=== PATIENT | female | born 1970 | race American Indian/Alaskan Native ===

== ENCOUNTER 2016-12-31 15:17 | Emergency (ER) | payer OTHER ==
[2016-12-31 15:59] LABS: Basophils % (Auto) 0.7 % (0.0-1.8); Hematocrit 35.2 % (30.3-42.9); Hemoglobin 11.3 gm/dl (10.1-14.3); Mean Corpuscular HGB Conc 32 % (30-34); Mean Corpuscular Hemoglobin 26 pg (28-32); Mean Corpuscular Volume 82 fl (79-97); Platelet Count 229 K/mm3 (140-440); Red Blood Count 4.31 M/mm3 (3.65-5.03); Red Cell Distribution Width 13.6 % (13.2-15.2); White Blood Count 5.9 K/mm3 (4.5-11.0)
[2016-12-31 16:12] LABS: Anion Gap 15 mmol/L; BUN/Creatinine Ratio 17.14; Blood Urea Nitrogen 12 mg/dL (7-17); Calcium 8.8 mg/dL (8.4-10.2); Carbon Dioxide 24 mmol/L (22-30); Chloride 100.5 mmol/L (98-107); Glucose 88 mg/dL (65-100); Potassium 3.9 mmol/L (3.6-5.0); Sodium 136 mmol/L (137-145)
[2016-12-31 17:12] LABS: Bilirubin,Urine NEG (Negative); Blood,Urine NEG (Negative); Ketones,Urine NEG (Negative); Leukocyte Esterase,Urine NEG (Negative); Mucus,Urine FEW /HPF; Nitrite,Urine NEG (Negative); Protein,Urine <15 mg/dL mg/dL (Negative); Urobilinogen,Urine < 2.0 mg/dL (<2.0)
--- NOTE | 2016-12-31 18:06 | Emergency Department Report ---
Chief Complaint: Back Pain/Injury Stated Complaint: BACK PAIN Time Seen by Provider: 12/31/16 18:01 - HPI History of Present Illness: Patient presents with bilateral lower back pain that she states radiates to her lower pelvic region that started today. She denies urinary symptoms, but admits to constipation due to taking Copaxone she also admits to having hemorrhoids. She states her last bowel movement was today but also small amount was hard. She denies blood in her stool and her urine, denies fever, chills admits to mild nausea but no vomiting. She does have a history of MS and states that she has had this type of pain in the past due to her MS. LMP was 12/10/16 she has recently visited Dr. Espinoza at the [facility] but states she is searching for a new doctor here in - ROS Review of Systems: All other systems unremarkable except documentation in HPI - Exam Vital Signs: Vital Signs 12/31/16 15:21 Temperature 98.5 F Pulse Rate 81 Respiratory 17 Rate Blood Pressure 158/96 O2 Sat by Pulse 100 Oximetry Physical Exam: Gen: Female well-developed and nourished, no apparent distress noted, ambulatory with a cane. Cardiovascular: Heart sounds present S1-S2, no murmur, gallop, edema or ectopy noted, 2+ pulses upper and lower extremities Respiratory: Chest symmetry with respirations, lungs clear to auscultate upper and lower lobes, respirations even and unlabored, no rales, rhonchi, crackles noted. MS: Bilateral lower back pain with light palpation, no limited range of motion. Abdomen: bowel sounds present, soft, nondistended, nontender, no rigidity, guarding or rebound tenderness Psych: AxOx3, answers questions appropriately, mood full range, affect normal, normal speech and tone. MSE screening note: Focused history and physical exam performed. Due to findings the following was ordered: seen by provider, laboratory and ordered, and to go to main ED to be seen by physician ED Medical Decision Making - Lab Data Result diagrams: 12/31/16 15:41 12/31/16 15:41 - Medical Decision Making seen by provider, laboratory studies ordered, and to go to main ED to be seen by physician ED Disposition for MSE Condition: Stable Referrals: PRIMARY CARE, [Primary Care Provider] - 3-5 Days
[2016-12-31] MEDS ORDERED: NACL 0.9% 1000 ML 1,000 ML IV ONE (20:34)
[2016-12-31] MEDS ORDERED: ZOFRAN IV ONE (20:34)
[2016-12-31] MEDS ORDERED: BENTYL IM ONE (20:34)
[2016-12-31] MEDS ORDERED: MORPHINE IV ONE (20:34)
--- NOTE | 2016-12-31 20:35 | Emergency Department Report ---
ED General Adult HPI - General Chief complaint: Back Pain/Injury Stated complaint: BACK PAIN Time Seen by Provider: 12/31/16 18:01 Source: patient, RN notes reviewed Mode of arrival: Ambulatory Limitations: Physical Limitation - History of Present Illness Initial comments: This is a 46-year-old female. She is previously unknown to me. Does not have a primary care doctor. Past medical history includes multiple sclerosis, hypertension, asthma. Last menstrual period is December 10. Also has a history of "enlarged uterus." Patient has surgical history for 2 C-sections. Patient presents to the ER complaining of bilateral lower back pain, that radiates into the bilateral lower quadrants. Pain is present for a few days. It is achy and sharp. It increases with palpation and range of motion. Decreases with rest. Patient also reports that she feels constipated, and also reports that her hemorrhoids are somewhat enlarged. There is no bright red blood per rectum. Positive nausea, no vomiting. Patient did admit to chronic right hip pain and moves down the right leg, which is not new, worsening or different. no Irritative or obstructive urinary symptoms. The patient has one sexual partner, does not use condoms, there is a history of chronic mild dyspareunia, no vaginal discharge which is new different or worse. -: Gradual Location: back Radiation: abdomen Quality: aching Consistency: intermittent Improves with: rest Worsens with: movement Associated Symptoms: nausea/vomiting. denies: confusion, chest pain, cough, diaphoresis, fever/chills - Related Data Home Medications Medication Instructions Recorded Confirmed Last Taken Glatiramer Acetate [Copaxone] 40 mg SQ 3XW 12/16/15 12/16/15 12/14/15 Valsartan/Hydrochlorothiazide 1 tab PO QDAY 12/16/15 12/16/15 12/16/15 [Diovan Hct 160-12.5 mg] Previous Rx's Medication Instructions Recorded Last Taken Type Ibuprofen [Motrin 800 MG tab] 800 mg PO Q8HR PRN #30 tablet 12/16/15 Unknown Rx traMADol [Ultram 50 MG tab] 50 mg PO Q6HR PRN #20 tablet 12/16/15 Unknown Rx Ketorolac [Toradol] 10 mg PO Q6H PRN #20 tablet 01/01/17 Unknown Rx Ondansetron [Zofran Odt] 4 mg PO QID PRN #20 tab.rapdis 01/01/17 Unknown Rx Allergies Allergy/AdvReac Type Severity Reaction Status Date / Time No Known Allergies Allergy Verified 12/31/16 15:28 ED Review of Systems ROS: Stated complaint: BACK PAIN Other details as noted in HPI Constitutional: denies: fever Eyes: denies: eye discharge ENT: denies: epistaxis Respiratory: denies: cough Cardiovascular: denies: chest pain Gastrointestinal: abdominal pain Genitourinary: denies: urgency, dysuria Musculoskeletal: back pain Skin: denies: lesions Neurological: paresthesias Psychiatric: denies: anxiety ED Past Medical Hx - Past Medical History Hx Hypertension: Yes Additional medical history: MS. ENLARGED UTERUS - Surgical History Additional Surgical History: x 2 - Social History Smoking Status: Never Smoker Substance Use Type: Alcohol, Prescribed - Medications Home Medications: Home Medications Medication Instructions Recorded Confirmed Last Taken Type Glatiramer Acetate [Copaxone] 40 mg SQ 3XW 12/16/15 12/16/15 12/14/15 History Ibuprofen [Motrin 800 MG tab] 800 mg PO Q8HR PRN #30 tablet 12/16/15 Unknown Rx Valsartan/Hydrochlorothiazide 1 tab PO QDAY 12/16/15 12/16/15 12/16/15 History [Diovan Hct 160-12.5 mg] traMADol [Ultram 50 MG tab] 50 mg PO Q6HR PRN #20 tablet 12/16/15 Unknown Rx Ketorolac [Toradol] 10 mg PO Q6H PRN #20 tablet 01/01/17 Unknown Rx Ondansetron [Zofran Odt] 4 mg PO QID PRN #20 tab.rapdis 01/01/17 Unknown Rx ED Physical Exam - General Limitations: No Limitations, Other (she walks with a cane, walks with a very minimal limp.) General appearance: alert, in no apparent distress - Head Head exam: Present: atraumatic, normocephalic - Eye Eye exam: Present: normal appearance, EOMI. Absent: nystagmus - ENT ENT exam: Present: normal exam, normal orophraynx, mucous membranes moist, normal external ear exam - Neck Neck exam: Present: normal inspection, full ROM. Absent: tenderness, meningismus - Respiratory Respiratory exam: Present: normal lung sounds bilaterally. Absent: respiratory distress, wheezes, rales, rhonchi, stridor, chest wall tenderness - Cardiovascular Cardiovascular Exam: Present: regular rate, normal rhythm, normal heart sounds. Absent: bradycardia, tachycardia, irregular rhythm, systolic murmur, diastolic murmur, rubs, gallop - GI/Abdominal GI/Abdominal exam: Present: soft, tenderness (mild suprapubic and bilateral lower quadrant tenderness. There is no rebound, guarding or peritoneal signs.) , normal bowel sounds. Absent: distended, guarding, rebound, rigid, pulsatile mass - Rectal Rectal exam: Present: normal inspection, other (no bleeding, during examination , I am escorted by nurse Eugenia Marc) - External exam: Present: normal external exam Speculum exam: Present: normal speculum exam, vaginal discharge Bi-manual exam: Present: normal bi-manual exam, other (during examination, I am escorted by nurse Eugenia White). Absent: cervical motion tendernes, adnexal tenderness, adnexal mass - Extremities Exam Extremities exam: Present: normal inspection, full ROM, normal capillary refill. Absent: tenderness, pedal edema, joint swelling, calf tenderness - Back Exam Back exam: Present: normal inspection, full ROM, paraspinal tenderness. Absent : tenderness, CVA tenderness (R) - Neurological Exam Neurological exam: Present: alert, oriented X3, other (Extraocular movements intact. Tongue midline. No facial droop. Facial sensation intact to light touch in the V1, V2, V3 distribution bilaterally. 5 and 5 strength in 4 extremities.. Sensation is intact to light touch in 4 extremities.). Absent: motor sensory deficit - Psychiatric Psychiatric exam: Present: normal affect, normal mood - Skin Skin exam: Present: warm, dry, intact, normal color. Absent: rash ED Course Vital Signs 12/31/16 12/31/16 01/01/17 15:21 21:28 00:16 Temperature 98.5 F 98 F Pulse Rate 81 70 Respiratory 17 18 18 Rate Blood Pressure 158/96 Blood Pressure 120/60 [Left] O2 Sat by Pulse 100 Oximetry - Reevaluation(s) Reevaluation #1: 12/31/16 21:11 Differential diagnoses: Colitis, diverticulitis, constipation, appendicitis, endometriosis Assessment and plan: 46-year-old female with back pain and lower abdominal pain. She is afebrile with reassuring vital signs, with exception of elevated blood pressure. Patient indicates to me that this pain is not consistent with episodes of multiple sclerosis. Laboratory studies are unremarkable, clinically doubt pancreatitis or biliary disease. Her gynecologic examination is benign. She will be treated symptomatically. A CT scan of the abdomen and pelvis is ordered. We will reassess. Reevaluation #2: 01/01/17 00:33 CT scan demonstrates no acute intra-abdominal pathology that would require emergent surgical intervention. Ambulates with assistance and cane. Fibroid uterus is suggested, which is known and chronic. Tenderness improved. No active vomiting. Patient will be discharged with pain medication, nausea medication, instructions to follow-up with gynecology, primary care. She is also noted to have a skin tag in the rectum, this can be followed up by either primary care or general surgery. She wants to follow up with a neurologist as well, she will be given local names , phone numbers and addresses. At this point in time, I see no immediate emergent condition that would require hospital admission. Patient will need to follow up as an outpatient. Given known history of fibroids, benign gynecologic examination, I don't believe patient requires emergent ultrasound at this time. 01/01/17 00:35 ED Medical Decision Making - Lab Data Result diagrams: 12/31/16 15:41 12/31/16 15:41 - Radiology Data Radiology results: report reviewed, image reviewed CT scan with IV contrast: 6 mm stone noted in the left mid renal cortical medullary region. The appendix is normal. The GI tract is normal. The uterus is enlarged. Fibroid formation is suggested. Follicular cysts on each ovary are suspected. Critical care attestation.: If time is entered above; I have spent that time in minutes in the direct care of this critically ill patient, excluding procedure time. ED Disposition Clinical Impression: Abdominal pain Disposition: DISCHARGED TO HOME OR SELFCARE Is pt being admited?: No Does the pt Need Aspirin: No Condition: Stable Instructions: Uterine Fibroids (ED) Additional Instructions: Rest and avoid heavy lifting. Avoid strenuous physical activity. Follow-up with the primary care doctor within the next week. Dr. Tineo is a local primary care doctor. CT scan demonstrated large fibroid uterus. Follow-up with a yard hand within the next month. Dr. Potts is a local yard hand. For the rectal skin tag, you may follow-up with a general surgeon. Dr. Ruiz is a local general surgeon. Follow up with him or any general surgeon at your leisure. For your convenience, Drs. Dent and Franklin are local neurology specialist. I recommended that you follow up with neurology specialist within next month. Chronic multiple sclerosis. Cultures were sent today, results will be available in the next 3-5 days. Have a primary care doctor contact the medical records department to obtain culture results. Return to the ER right away with new pain, worsened pain, migration of pain, fevers or chills, intractable nausea or vomiting, inability to tolerate liquid feeds. Prescriptions: Ketorolac [Toradol] 10 mg PO Q6H PRN #20 tablet PRN Reason: Pain Ondansetron [Zofran Odt] 4 mg PO QID PRN #20 tab.rapdis PRN Reason: Nausea Referrals: PRIMARY CAREMD [Primary Care Provider] - 3-5 Days SLAVA TINEO MD [Staff Physician] - 3-5 Days RAVEN POTTS MD [Staff Physician] - 3-5 Days ALANIS RUIZ MD [Staff Physician] - 3-5 Days MARTHA DENT MD [Staff Physician] - 3-5 Days HOLLY PINEDA MD [Staff Physician] - 3-5 Days
[2016-12-31] MEDS ORDERED: TORADOL IV ONE (21:11)
[2016-12-31 21:51] LABS: Alanine Aminotransferase 15 units/L (7-56); Albumin 3.6 g/dL (3.9-5); Alkaline Phosphatase 54 units/L (35-129); Bilirubin,Total 0.3 mg/dL (0.1-1.2); Lipase 34 units/L (13-60); Total Protein 7.1 g/dL (6.3-8.2)
[2016-12-31 22:09] LABS: Bilirubin,Direct < 0.2 mg/dL (0-0.2); Bilirubin,Indirect 0.1 mg/dL
[2016-12-31] MEDS ORDERED: NACL ONE (23:19)
[2017-01-01 00:20] VITALS: BP 120/60
--- NOTE | 2017-01-01 00:25 | Cat Scan Report ---
FINAL REPORT PROCEDURE: CT ABDOMEN PELVIS W CON TECHNIQUE: Computerized axial tomography of the abdomen and pelvis was performed after the IV injection of iodinated nonionic contrast. HISTORY: abd pain COMPARISON: No prior studies are available for comparison. FINDINGS: Visualized lower thorax: No significant abnormality. Liver: Normal size and attenuation. Spleen: Normal size and attenuation. Gallbladder and biliary system: Normal. Pancreas: Normal. Adrenals: Normal. Kidneys: Both kidneys have normal size. No hydronephrosis. There is a 6 millimeter stone identified in the mid left renal cortical medullary region.. GI tract: No obstruction. No ileus or enteritis. The cecum and colon are normal. The appendix region is normal.. Lymph nodes and mesentery: Normal. Vasculature: Normal. Bladder: Normal. Reproductive organs: The uterus is enlarged. Fibroid formation is suspected. Follicular cysts on each ovary are suspected.. Peritoneum: No free fluid. Musculoskeletal structures: No significant abnormality. Other: None. IMPRESSION: There is no evidence of intestinal or urinary tract obstruction. No ileus or enteritis. Left renal calculus is noted as described. The uterus is enlarged. Fibroid formation is suspected. Further evaluation with ultrasound may be appropriate.
== END 2017-01-01 00:46 | disposition home or self-care (01) ==
LOC: ED 15:17
DX: R10.31 Right lower quadrant pain (principal); R10.32 Left lower quadrant pain; I10 Essential (primary) hypertension
CPT/HCPCS: 36415; 74177; 80048; 80074; 81001; 81025; 82962; 83690; 85025; 87210; 87591; 96361; 96372; 96374; 96375; 99285; J0500; J1885; J2270; J2405; J7030; Q9967

== ENCOUNTER 2017-01-09 10:05 | Day surgery (SDC) | payer OTHER ==
[2017-01-09] MEDS ORDERED: XYLOCAINE MPF 2% ONE (10:59)
[2017-01-09] MEDS ORDERED: DIPRIVAN 10 MG/ML IV ONE (10:59)
[2017-01-09] MEDS ORDERED: DILAUDID ONE (11:00)
--- NOTE | 2017-01-09 11:16 | Anesthesia Day of Surgery ---
Anesthesia Day of Surgery - Day of Surgery Patient Examined: Yes Patient H&P Reviewed: Yes Patient is NPO: Yes
--- NOTE | 2017-01-09 11:18 | Anesthesia Consultation ---
Anesthesia Consult and Med Hx - Airway Anesthetic Teeth Evaluation: Good ROM Head & Neck: Adequate Mental/Hyoid Distance: Adequate Mallampati Class: Class II Intubation Access Assessment: Probably Good - Pulmonary Exam CTA: Yes - Cardiac Exam Cardiac Exam: RRR - Pre-Operative Health Status ASA Pre-Surgery Classification: ASA3 Proposed Anesthetic Plan: MAC - Pulmonary Hx Respiratory Symptoms: Yes (bronchitis uses inhaler PRN) - Cardiovascular System Hx Hypertension: Yes - Central Nervous System Hx Neuromuscular Disorder: Yes (MS at this time only knees bother her) - Other Systems Hx Obesity: Yes (BMI 47.8) - Additional Comments Anesthesia Medical History Comments: NPO after MN. No prior general anesthetics and no family hx of anesthesia problems. HX of HTN, MO, MS, and bronchitis.
[2017-01-09] MEDS ORDERED: LACTATED RINGERS 1,000 ML ONE (11:35)
[2017-01-09] MEDS ORDERED: PEPCID PO NR (12:00)
[2017-01-09] MEDS ORDERED: NACL 0.9% 1000 ML 1,000 ML IV SCH (12:00)
[2017-01-09] MEDS ORDERED: LACTATED RINGERS 1,000 ML IV SCH (12:00)
[2017-01-09] MEDS ORDERED: VERSED IV NR (12:00)
[2017-01-09] MEDS ORDERED: MARCAINE 0.25% INFILTRATI ONE (12:38)
[2017-01-09 13:04] VITALS: BP 147/89
--- NOTE | 2017-01-09 15:38 | Operative Report ---
PREOPERATIVE DIAGNOSES: 1. Perianal and rectal pain with some bleeding and a polyp that could be felt easily on the left side of the patient. 2. Multiple sclerosis by history. POSTOPERATIVE DIAGNOSES: 1. Perianal and rectal pain with some bleeding and a polyp that could be felt easily on the left side of the patient. 2. Multiple sclerosis by history. PROCEDURE: Removal of a polyp in the anal area on her left side with a stoke about 1 cm. The polyp measured about 2 x 2.1 cm. This was suture ligated using for that purpose 4-0 chromic gut. DESCRIPTION OF PROCEDURE: With the patient in the left decubitus position, she was prepped and draped in usual fashion. The area was infiltrated with 8 mL of 0.25% Marcaine and then was able to go around at its base with use of 4-0 chromic catgut with a suture ligature to the area and then it was excised in toto. It was sent to pathology. The patient has tolerated the operation well and told to do a Sitz baths total of 3 times a day and to call me in about 2 weeks and tell me how she is doing, and 1 did indicate to her and I did stress to her that she is to have colonoscopy, especially that she has some rectal pain and bleeding. She is going to call the office. We will go ahead and ____ to see her. JOB# [id number] AIDEN/JEFFREY
== END 2017-01-09 12:54 | disposition home or self-care (01) ==
LOC: OR 10:05
PROVIDERS: ATTEND Surgery
DX: K62.1 Rectal polyp (principal); I10 Essential (primary) hypertension; G35 Multiple sclerosis; E66.9 Obesity, unspecified; Z68.42 Body mass index [BMI] 45.0-49.9, adult
CPT/HCPCS: 36415; 46922; 81025; 84703; 88304; J1170; J2704; J7120; J2250

== ENCOUNTER 2018-04-27 12:44 | Emergency (ER) | payer MEDICARE, OTHER ==
[2018-04-27 13:04] VITALS: BP 157/103
[2018-04-27] MEDS ORDERED: MOTRIN PO ONE (13:19)
--- NOTE | 2018-04-27 13:26 | Emergency Department Report ---
ED Lower Extremity HPI - General Chief Complaint: Extremity Injury, Lower Stated Complaint: POSSIBLE SPRANG FOOT Time Seen by Provider: 04/27/18 13:16 Source: patient Mode of arrival: Ambulatory Limitations: No Limitations - History of Present Illness Initial Comments: This is a 47-year-old female nontoxic, well nourished in appearance, no acute signs of distress presents to the ED with c/o of right foot and ankle pain 1 day. Patient stated that was twisted her ankle right and fell on her foot right. Patient denies any other trauma. Patient denies any numbness, tingling , fever, chills, nausea, vomiting, chest pain, shortness of breath, headache, stiff neck. Patient denies any joint swelling or joint redness. Patient denies decreased range of motion. Patient stated has decreased gait due to pain. Patient denies any allergies or significant past medical history. MD Complaint: ankle injury, foot injury -: days(s) (1) Injury: Ankle: Right, Foot: Right Type of Injury: inversion Severity: mild Severity scale (0 -10): 8 Improves With: immobilization Worsens With: weight bearing, movement, palpation Associated Symptoms: swelling, able to partially bear weight, ambulatory. denies: snap/pop sensation, numbness, tingling, unable to bear weight - Related Data Home Medications Medication Instructions Recorded Confirmed Last Taken Glatiramer Acetate [Copaxone] 40 mg SQ 3XW 12/16/15 01/09/17 01/09/17 08:30 Ergocalciferol (Vitamin D2) 1 cap PO QWEEK 01/08/17 01/09/17 01/03/17 [Vitamin D2] Gabapentin 300 mg PO QDAY 01/08/17 01/09/17 2 Weeks Ago ~12/26/16 Previous Rx's Medication Instructions Recorded Last Taken Type Ketorolac [Toradol] 10 mg PO Q6H PRN #20 tablet 01/01/17 01/08/17 Rx Ondansetron [Zofran Odt] 4 mg PO QID PRN #20 tab.rapdis 01/01/17 01/06/17 Rx Ibuprofen [Motrin] 600 mg PO Q8H PRN #30 tablet 04/27/18 Unknown Rx Allergies Allergy/AdvReac Type Severity Reaction Status Date / Time No Known Allergies Allergy Verified 12/31/16 15:28 ED Review of Systems ROS: Stated complaint: POSSIBLE SPRANG FOOT Other details as noted in HPI Constitutional: denies: chills, fever Eyes: denies: eye pain, eye discharge, vision change ENT: denies: ear pain, throat pain Respiratory: denies: cough, shortness of breath, wheezing Cardiovascular: denies: chest pain, palpitations Endocrine: no symptoms reported Gastrointestinal: denies: abdominal pain, nausea, diarrhea Genitourinary: denies: urgency, dysuria, discharge Musculoskeletal: denies: back pain, joint swelling, arthralgia Skin: denies: rash, lesions Neurological: denies: headache, weakness, paresthesias Psychiatric: denies: anxiety, depression Hematological/Lymphatic: denies: easy bleeding, easy bruising ED Past Medical Hx - Past Medical History Previous Medical History?: Yes Hx Hypertension: Yes Additional medical history: MS. ENLARGED UTERUS - Surgical History Past Surgical History?: Yes Additional Surgical History: x 2 - Social History Smoking Status: Never Smoker Substance Use Type: Other - Medications Home Medications: Home Medications Medication Instructions Recorded Confirmed Last Taken Type Glatiramer Acetate [Copaxone] 40 mg SQ 3XW 12/16/15 01/09/17 01/09/17 08:30 History Ketorolac [Toradol] 10 mg PO Q6H PRN #20 tablet 01/01/17 01/09/17 01/08/17 Rx Ondansetron [Zofran Odt] 4 mg PO QID PRN #20 tab.rapdis 01/01/17 01/09/17 Rx Ergocalciferol (Vitamin D2) 1 cap PO QWEEK 01/08/17 01/09/17 01/03/17 History [Vitamin D2] Gabapentin 300 mg PO QDAY 01/08/17 01/09/17 2 Weeks Ago History ~12/26/16 Ibuprofen [Motrin] 600 mg PO Q8H PRN #30 tablet 04/27/18 Unknown Rx ED Physical Exam - General Limitations: No Limitations General appearance: alert, in no apparent distress - Head Head exam: Present: atraumatic, normocephalic - Eye Eye exam: Present: normal appearance - ENT ENT exam: Present: mucous membranes moist - Neck Neck exam: Present: normal inspection - Respiratory Respiratory exam: Present: normal lung sounds bilaterally. Absent: respiratory distress - Cardiovascular Cardiovascular Exam: Present: regular rate, normal rhythm. Absent: systolic murmur, diastolic murmur, rubs, gallop - GI/Abdominal GI/Abdominal exam: Present: soft, normal bowel sounds - Extremities Exam Extremities exam: Present: normal inspection, full ROM, tenderness, normal capillary refill. Absent: joint swelling, calf tenderness - Expanded Lower Extremity Exam Right Hip exam: Present: normal inspection, full ROM. Absent: tenderness, swelling Upper Leg exam: Present: normal inspection, full ROM. Absent: tenderness, swelling Knee exam: Present: normal inspection, full ROM. Absent: tenderness, swelling Lower Leg exam: Present: normal inspection, full ROM. Absent: tenderness, swelling Ankle exam: Present: normal inspection, full ROM, tenderness, swelling. Absent : abrasion, laceration, ecchymosis, deformity, crepidus, dislocation, erythema, anterior draw sign Foot/Toe exam: Present: normal inspection, full ROM, tenderness, swelling. Absent: abrasion, laceration, ecchymosis, deformity, crepidus, dislocation, erythema, amputation, puncture wound, foreign body, calcaneal tenderness, tenderness at base of 5th metatarsal, nail avulsion, subungual hematoma Neuro vascular tendon exam: Present: no vascular compromise. Absent: pulse deficit, abnormal cap refill, motor deficit, sensory deficit, tendon deficit, extremity cold to touch, pallor, abnormal 2-point discrimination, decreased fine /light touch, foot drop, peroneal nerve deficit, significant pain with passive ROM of distal joint Gait: Positive: observed and normal - Back Exam Back exam: Present: normal inspection, full ROM. Absent: tenderness, CVA tenderness (R), CVA tenderness (L), muscle spasm, paraspinal tenderness, vertebral tenderness, rash noted - Neurological Exam Neurological exam: Present: alert, oriented X3, normal gait - Psychiatric Psychiatric exam: Present: normal affect, normal mood - Skin Skin exam: Present: warm, dry, intact, normal color. Absent: rash ED Course Vital Signs 04/27/18 12:50 Temperature 97.8 F Pulse Rate 78 Respiratory 18 Rate Blood Pressure 157/103 O2 Sat by Pulse 97 Oximetry - Reevaluation(s) Reevaluation #1: 04/27/18 13:25 Patient is speaking in full sentences with no signs of distress noted. ED Lower Extremity MDM - Medical Decision Making This is a 47-year-old female that presents with right foot and ankle sprain. Patient is stable and was examined by me. I referred patient to an orthopedic doctor for further evaluation for possible MRI. X-ray has been obtained and dictated by the radiologist. Patient is notified of the x-ray report with noted by the patient. Patient does have normal gait with no tenderness and no joint swelling. No ecchymosis. no joint redness or swelling. Not warm to touch. No signs of cellulites present. Patient does have a walker currently in the ED. Patient was instructed to RICE therapy. Patient received Motrin for pain. Patient is discharged with Motrin. At time of discharge, the patient does not seem toxic or ill in appearance. No acute signs of distress noted. Patient agrees to discharge treatment plan of care. No further questions noted by the patient. Critical care attestation.: If time is entered above; I have spent that time in minutes in the direct care of this critically ill patient, excluding procedure time. ED Disposition Clinical Impression: Strain of right ankle and foot Qualifiers: Encounter type: initial encounter Qualified Code(s): S96.911A - Strain of unspecified muscle and tendon at ankle and foot level, right foot, initial encounter Disposition: DC-01 TO HOME OR SELFCARE Is pt being admited?: No Does the pt Need Aspirin: No Condition: Stable Instructions: Ankle Sprain (ED), Ankle Stirrup Splint (ED), RICE Therapy (ED), Ibuprofen (By mouth) Additional Instructions: Follow-up with a orthopedic doctor in 3-5 days or if symptoms worsen and continue return to emergency room as soon as possible. Prescriptions: Ibuprofen [Motrin] 600 mg PO Q8H PRN #30 tablet PRN Reason: Pain Referrals: PRIMARY CAREMD [Primary Care Provider] - 3-5 Days [place] MD [Staff Physician] - 3-5 Days [facility] [place] [Outside] - 3-5 Days Forms: Work/School Release Form(ED)
--- NOTE | 2018-04-27 13:57 | XRay Report ---
RIGHT ANKLE, 3 views: History: right ankle pain. Bone mineralization is normal. No acute osseous abnormality or joint pathology is identified. There is diffuse soft tissue swelling or edema. IMPRESSION: Soft tissue swelling or edema. No osseous abnormality is detected.
--- NOTE | 2018-04-27 13:57 | XRay Report ---
RIGHT FOOT, 3 views: History: Foot pain. The bony architecture is intact. Bony alignment is normal. No soft tissue abnormalities are seen. The joint spaces appear preserved. Mild degenerative changes are noted in the midfoot. Moderate plantar spur. IMPRESSION: No acute process. Mild degenerative changes. Plantar spur.
== END 2018-04-27 14:13 | disposition home or self-care (01) ==
LOC: ED 12:44
DX: S96.911A Strain of unspecified muscle and tendon at ankle and foot level, right foot, initial encounter (principal); I10 Essential (primary) hypertension; W19.XXXA Unspecified fall, initial encounter; Y93.89 Activity, other specified; Y92.89 Other specified places as the place of occurrence of the external cause; Y99.8 Other external cause status
CPT/HCPCS: 99283

== ENCOUNTER 2018-05-09 22:32 | Emergency (ER) | payer MEDICARE ==
[2018-05-09] MEDS ORDERED: ASPIRIN PO ONE (23:09)
[2018-05-09 23:58] LABS: Basophils % (Auto) 0.5 % (0.0-1.8); Eosinophils # (Auto) 0.2 K/mm3 (0.0-0.4); Eosinophils % (Auto) 2.9 % (0.0-4.3); Hemoglobin 10.9 gm/dl (10.1-14.3); Lymphocytes # (Auto) 2.2 K/mm3 (1.2-5.4); Lymphocytes % (Auto) 41.4 % (13.4-35.0); Mean Corpuscular HGB Conc 32 % (30-34); Mean Corpuscular Hemoglobin 26 pg (28-32); Mean Corpuscular Volume 82 fl (79-97); Monocytes # (Auto) 0.6 K/mm3 (0.0-0.8); Monocytes % (Auto) 11.4 % (0.0-7.3); Platelet Count 219 K/mm3 (140-440); Red Blood Count 4.17 M/mm3 (3.65-5.03); Red Cell Distribution Width 13.9 % (13.2-15.2)
[2018-05-10 00:10] LABS: BUN/Creatinine Ratio 16; Blood Urea Nitrogen 13 mg/dL (7-17); Calcium 9.1 mg/dL (8.4-10.2); Hemolysis Index 0
[2018-05-10] MEDS ORDERED: TORADOL IM ONE (04:00)
[2018-05-10] MEDS ORDERED: CATAPRES PO ONE (04:00)
--- NOTE | 2018-05-10 04:07 | Emergency Department Report ---
HPI - General Chief Complaint: Chest Pain Time Seen by Provider: 05/10/18 03:46 - HPI HPI: Patient is a 47-year-old female who presents for evaluation of chest pain. The patient reports left-sided chest pain for greater than the past 4 hours, currently 8/10 in severity, radiating into the left arm, sharp in quality, exacerbated with movement. The patient denies fever, neck pain, parasthesias, dyspnea, cough, hemoptysis, palpitations, dizziness, syncope, unilateral leg swelling, calf muscle pain. Patient also denies cocaine or other stimulant use , history of DVT or PE, recent immobilization, or history of cancer. ED Past Medical Hx - Past Medical History Hx Hypertension: Yes Additional medical history: MS, Morbid Obesity. ENLARGED UTERUS - Surgical History Additional Surgical History: x 2 - Social History Smoking Status: Never Smoker Substance Use Type: None, Marijuana - Medications Home Medications: Home Medications Medication Instructions Recorded Confirmed Last Taken Type Glatiramer Acetate [Copaxone] 40 mg SQ 3XW 12/16/15 01/09/17 01/09/17 08:30 History Ketorolac [Toradol] 10 mg PO Q6H PRN #20 tablet 01/01/17 01/09/17 01/08/17 Rx Ondansetron [Zofran Odt] 4 mg PO QID PRN #20 tab.rapdis 01/01/17 01/09/17 Rx Ergocalciferol (Vitamin D2) 1 cap PO QWEEK 01/08/17 01/09/17 01/03/17 History [Vitamin D2] Gabapentin 300 mg PO QDAY 01/08/17 01/09/17 2 Weeks Ago History ~12/26/16 Ibuprofen [Motrin] 600 mg PO Q8H PRN #30 tablet 04/27/18 Unknown Rx Cyclobenzaprine HCl [Flexeril 5 MG 5 mg PO Q8HR PRN #15 tab 05/10/18 Unknown Rx TAB] ED Review of Systems ROS: Stated complaint: CHEST PAIN Other details as noted in HPI Constitutional: denies: fever ENT: denies: throat or neck pain Respiratory: denies: cough, shortness of breath Cardiovascular: reports chest pain Endocrine: denies unexplained weight loss or gain Gastrointestinal: denies: abdominal pain, nausea Genitourinary: denies: dysuria Musculoskeletal: denies: leg swelling Skin: denies: rash Neurological: denies: headache Hematological/Lymphatic: denies: easy bleeding or easy bruising Psych: denies sadness or hopelessness Physical Exam - Physical Exam Vital Signs: Vital Signs 05/09/18 05/10/18 22:38 03:47 Temperature 98.6 F 98.1 F Pulse Rate 88 80 Respiratory 18 22 Rate Blood Pressure 153/90 Blood Pressure 159/96 [Left] O2 Sat by Pulse 100 100 Oximetry Physical Exam: General: well-nourished, well-developed, no acute distress Head: Normocephalic, atraumatic Eyes: normal sclera ENT: Mucous membranes are pink and moist Neck: trachea midline, neck supple, No neck stiffness, no cervical adenopathy Respiratory: Breath sounds equal bilaterally, no wheezing, rales, or rhonchi Cardio: S1 and S2 present, no murmurs, rubs, gallops, capillary refill is brisk Abdomen: Normoactive bowel sounds, soft abdomen, no rigidity, no guarding or rebound tenderness Musc: No pitting edema Skin: No rash Neuro: no facial drooping, normal speech Psych: Normal affect ED Course Vital Signs 05/09/18 05/10/18 22:38 03:47 Temperature 98.6 F 98.1 F Pulse Rate 88 80 Respiratory 18 22 Rate Blood Pressure 153/90 Blood Pressure 159/96 [Left] O2 Sat by Pulse 100 100 Oximetry ED Medical Decision Making - Lab Data Result diagrams: 05/09/18 23:20 05/09/18 23:20 - Medical Decision Making The patient was seen and examined by myself. The patient is placed on a undercoater and continuous pulse ox. On initial evaluation, the patient was found to be in no distress. EKG was negative for findings suggestive of acute cardiac infarct. Labs and imaging are obtained. The patient is given an IM dose of Toradol for pain, and a tablet of clonidine for her elevated blood pressure. Chest x-ray is negative for pneumothorax, focal consolidation, pulmonary vascular congestion, pleural effusion, or other obvious acute cardiopulmonary disease process. Lab results were non-concerning including levels of troponin, WBC, hemoglobin, hematocrit, electrolytes, renal function. The patient was reevaluated and reported that their symptoms were markedly improved. As the patient has a POLLY risk score less than 2, and a well's score less than 2, the patient is at low risk of ACS or pulmonary emboli etiology of their symptoms. The patient is stable for discharge with outpatient follow-up. The patient is given follow-up and return instructions. The patient expressed understanding and agreed with the plan. The patient is discharged in stable condition. Critical care attestation.: If time is entered above; I have spent that time in minutes in the direct care of this critically ill patient, excluding procedure time. ED Disposition Clinical Impression: Acute chest pain, Hypertensive urgency Disposition: TO HOME OR SELFCARE Is pt being admited?: No Does the pt Need Aspirin: No Condition: Stable Instructions: Chest Pain (ED) Referrals: PRIMARY CARE, [Primary Care Provider] - 3-5 Days [facility] [Outside] - 3-5 Days Time of Disposition: 04:01
--- NOTE | 2018-05-10 04:27 | XRay Report ---
FINAL REPORT EXAM: XR CHEST 1V AP HISTORY: chest pain TECHNIQUE: AP portable view(s) of the chest obtained. PRIORS: None. FINDINGS: No mediastinal shift. Cardiac silhouette is not enlarged for portable technique. No pneumothorax, effusion, or focal pulmonary opacity identified. No acute skeletal findings. IMPRESSION: No acute pulmonary finding identified.
[2018-05-10 04:51] VITALS: BP 144/84
== END 2018-05-10 05:05 | disposition home or self-care (01) ==
LOC: ED 22:32
DX: R07.89 Other chest pain (principal); I10 Essential (primary) hypertension
CPT/HCPCS: 36415; 71045; 80048; 84484; 84703; 85025; 93005; 93010; 96372; 99284; J1885